=== PATIENT | female | born 1995 | race Caucasian/White ===

== ENCOUNTER → 2021-05-25 | Outpatient (CLI) | payer OTHER ==
[~2021-05-25] MED LIST: ASMANEX220 MCG INH; DAYPRO600 M1 PO; MACROBID100 M1 PO; MOTRIN800 MG PO; ROBAXIN750 MG PO; SEASONALE 30 MC1 TAB PO; SINGULAIR10 MG PO; TOPAMAX25 MG PO; VENTOLIN H0.09 MG/AC IH; VICODIN 500 MG-1 TAB PO
== END | disposition home or self-care (01) ==
LOC: MRI 10:55
PROVIDERS: ATTEND Nurse Practitioner Family
DX: G93.89 Other specified disorders of brain (principal); G43.909 Migraine, unspecified, not intractable, without status migrainosus